=== PATIENT | female | born 1995 | race Caucasian/White ===

== ENCOUNTER 2016-09-08 14:08 | Emergency (ER) | payer SELFPAY ==
[2016-09-08 13:33] LABS: URINE SOURCE CLEAN CATCH
[2016-09-08 13:35] LABS: URINE APPEARANCE CLEAR; URINE BILIRUBIN NEG (NEG); URINE BLOOD 1+ (NEG); URINE COLOR YELLOW; URINE GLUCOSE NEG (NORM); URINE KETONE NEG (NEG); URINE LEUKOCYTE ESTERASE 1+ (NEG); URINE NITRATE NEG (NEG); URINE PH 6.5 (5-8); URINE PROTEIN TRACE (NEG)
[2016-09-08 13:36] LABS: MICRO INDICATED? YES
[2016-09-08 13:50] LABS: URINE RBC 0-2 /[HPF] (0-2)
[2016-09-08 13:51] LABS: CULTURE INDICATED? NO; URINE BACTERIA NEG (NEG); URINE MUCUS PRESENT; URINE SQUAMOUS EPITHELIAL CELL OCCAS /[HPF]; URINE WBC 0-2 /[HPF] (0-5)
[~2016-09-08 14:08] MED LIST: BACTRIM DS TABL1 TA2 PO; VOLTAREN75 MG PO
== END 2016-09-08 14:31 | disposition home or self-care (01) ==
LOC: SED 14:08
PROVIDERS: Physician Assistant
DX: N39.0 Urinary tract infection, site not specified (principal)
CPT/HCPCS: 81003; 84703; 99283